=== PATIENT | male | born 1995 | race African-American/Black ===

== ENCOUNTER 2016-03-12 22:55 | Emergency (ER) | payer SELFPAY ==
[~2016-03-12] VITALS: Ht 175.3 cm; Wt 77.0 kg
[2016-03-12 23:02] VITALS: BP 120/81; PULSE 84; RESP 18; TEMP 98; O2SAT 99
--- NOTE | 2016-03-13 00:11 | PD ---
HPI Chief Complaint: Injury Time Seen by Provider: 00:00 Travel History International Travel<30 days: No Contact w/Intl Traveler<30days: No Traveled to known affect area: No History of Present Illness HPI [id number] male presents for evaluation of injury to the left fourth finger. Prior to arrival patient was lifting weights when he got his left fourth finger stuck in between 2 weights. He now has pain to the distal left fourth finger. Pain is a throbbing pain, constant, worse with palpation. Last tetanus vaccination unknown. No other complaints. PFSH Social History Alcohol Use: No Tobacco Use: No Substance Use: Yes (marijuana) Allergies-Medications (Allergen,Severity, Reaction): Coded Allergies: No Known Allergies (Unverified , 03/12/16) Review of Systems Musculoskeletal: Positive: Pain Skin: Positive Other (bleeding, bruising) Physical Exam Narrative GENERAL: Well-developed well-nourished male in no acute distress SKIN: Warm and dry. There is a superficial laceration to the distal lateral aspect of the left fourth finger. Extremities: Soft tissue swelling to the distal aspect of left fourth finger. The left fourth fingernail is lifted off of the nail bed but attached at the root. Tender to palpation. Sensation is preserved. Data Data Last Documented VS Vital Signs Date Time Temp Pulse Resp B/P Pulse Ox O2 Delivery O2 Flow Rate FiO2 03/12/16 23:02 98.0 84 18 120/81 99 Room Air Orders Finger ([id number]) (03/13/16 ) Ibuprofen (Motrin) (03/13/16 00:15) Tetanus/Diphtheria Tox Adult (Tetanus/Di (03/13/16 00:15) Splint Or Brace Apply/Monitor (03/13/16 01:22) [facility] Medical Decision Making Medical Screen Exam Complete: Yes Emergency Medical Condition: Yes Medical Record Reviewed: Yes Differential Diagnosis Tuft fracture, nail avulsion, subungual hematoma, laceration Narrative Course 20-year-old male with left fourth finger pain. On examination his nail has been lifted off of the nail bed however it is attached at the root. I explained to the patient that likely the nail will fall off over the course of the next few weeks. It will be left on for now for comfort. Tetanus status has been updated. X-ray confirms distal fourth finger fracture. Local wound care, finger splint has been applied. The patient lacks insurance currently and so mandatory outpatient referral for outpatient hand surgery follow-up has been placed. He is stable for discharge. Diagnosis Primary Impression: Finger fracture, left Qualified Code: S62.609A - Finger fracture, left, closed, initial encounter Additional Impression: Fingernail avulsion, partial Qualified Code: S61.309A - Fingernail avulsion, partial, initial encounter Referrals: Hand Surgeon Additional Instructions: Ice several times a day 10 minutes at a time. Take Tylenol or Motrin for discomfort. Follow up with a hand surgeon in the next 1-2 weeks. As discussed our immigration case manager will contact you to help facilitate an appointment. Wash the wound daily with soap and water and apply antibiotic cream. Return for any emergent medical conditions. Med/Other Pt SpecificInfo: Orthopedic Instructions Disposition: 01 DISCHARGE HOME Condition: Stable Andi Ward Mar 13, 2016 00:11
[2016-03-13] MEDS ORDERED: TETANUS/DIPHTHERIA TOXOID ADULT 0.5 ML VIAL IM ONE (00:15)
[2016-03-13] MEDS ORDERED: IBUPROFEN 800 MG TAB PO ONE (00:15)
--- NOTE | 2016-03-13 01:00 | RADRPT ---
EXAM DATE/TIME: 03/13/2016 00:34 [place] COMPARISON: No previous studies available for comparison. INDICATIONS : Patient states he dropped a weight on his finger. MEDICAL HISTORY : None. SURGICAL HISTORY : None. ENCOUNTER: Initial ACUITY: 1 day PAIN SCORE: 7/10 LOCATION: Left Hand, 4th Digit FINDINGS: There are fractures involving the fourth finger distal phalanx including longitudinal fractures which extend through the majority of the phalanx and the tuft is shattered the proximal and middle phalanx are intact. CONCLUSION: Fourth finger distal phalangeal fractures Rufino Allen MD on March 13, 2016 at 0:58 Board Certified Radiologist. This report was verified electronically.
[2016-03-20] MEDS ORDERED: BACT800T5 PO (09:24)
== END 2016-03-13 02:12 | disposition home or self-care (01) ==
LOC: NEPB 22:55
DX: S62.609A Fracture of unspecified phalanx of unspecified finger, initial encounter for closed fracture (principal); Z23 Encounter for immunization; W23.0XXA Caught, crushed, jammed, or pinched between moving objects, initial encounter; Y93.59 Activity, other involving other sports and athletics played individually; Y99.8 Other external cause status
CPT/HCPCS: 29130; 73140; 90471; 90714